=== PATIENT | male | born 1965 | race Caucasian/White ===

== ENCOUNTER 2018-07-02 09:31 | Inpatient (IN) | payer MEDICAID ==
[~2018-07-02] VITALS: Ht 157.5 cm; Wt 77.6 kg
[2018-07-02 09:37] VITALS: BP 198/109
--- NOTE | 2018-07-02 09:43 | NUR ---
PATIENT AMBULATED TO BED 11 AT THIS TIME.
--- NOTE | 2018-07-02 09:53 | NUR ---
C/O CP AND SOB X15 DAYS. PT REPORTS LT SIDED CP, NON-RADIATING, PRESSURE PAIN AT 6/10. PT O2 SAT 98% RA, BREATH SOUNDS CLEAR AND EQUAL BILAT, BREATHING UNLABORED. PT HYPERTENSIVE AT 182/100, SINUS TACH W/O ECTOPIES AT 121. PT SKIN IS WARM/DRY. PT ALERT AND ANSWERING QUESTIONS APPROPRIATELY. BED IN LOW POSITION. PT PLACED ON DINING CAR SERVER AND IN GOWN.
--- NOTE | 2018-07-02 09:56 | NUR ---
DR. JORGENSEN AT BEDSIDE EVALUATING PATIENT.
[2018-07-02] MEDS ORDERED: ASPIRIN 325 MG TAB PO ONE (10:00)
[2018-07-02] MEDS ORDERED: NACL 0.9% 1,000 ML IV ONE (10:00)
[2018-07-02] MEDS ORDERED: LORazepam 2 MG/ML VIAL IVP ONE (10:00)
--- NOTE | 2018-07-02 10:01 | NUR ---
URINE COLLECTED AND SENT TO LAB
--- NOTE | 2018-07-02 10:05 | NUR ---
IV STARTED, 20 G R FOREARM AND LABS COLLECTED AT BEDSIDE. PT TOLERATED PROCEDURE WELL.
--- NOTE | 2018-07-02 10:14 | NUR ---
XRAY AT BEDSIDE
[2018-07-02 10:16] LABS: BASOPHILS % (AUTO) 0.3 % (0.0-2.0); EOSINOPHILS # (AUTO) 0.1 K/uL (0-0.4); EOSINOPHILS % (AUTO) 0.5 % (0.0-4.0); HEMATOCRIT 44.5 % (36-52); HEMOGLOBIN 15.6 g/dL (12.0-18.0); LYMPHOCYTES # (AUTO) 2.1 K/uL (2.0-11.5); LYMPHOCYTES % (AUTO) 19.2 % (20.5-51.1); MEAN CORPUSCULAR HEMOGLOBIN 31 pg (27-31); MEAN CORPUSCULAR HGB CONC 35 g/dL (33-37); MEAN CORPUSCULAR VOLUME 87.9 fL (80-94); MONOCYTES # (AUTO) 0.4 K/uL (0.8-1.0); MONOCYTES % (AUTO) 4.1 % (1.7-9.3); NEUTROPHILS # (AUTO) 8.3 K/uL (1.8-7.7); NEUTROPHILS % (AUTO) 75.9 % (42.2-75.2); PLATELET COUNT (AUTO) 372 K/uL (140-450); RED BLOOD CELL COUNT(AUTO) 5.06 MIL/uL (4.20-6.10); RED CELL DISTRIBUTION WIDTH 12.8 % (11.6-13.7); WHITE BLOOD COUNT (AUTO) 10.9 K/uL (4.8-10.8)
[2018-07-02 10:50] LABS: BARBITURATE, URINE NEGATIVE ng/ml (NEG <=200); BENZODIAZEPINE, URINE NEGATIVE ng/mL (NEG <=200); CANNABINOID, URINE NEGATIVE ng/mL (NEG <=50); COCAINE, URINE NEGATIVE ng/mL (NEG <=300); OPIATE, URINE NEGATIVE ng/mL (NEG <=2000); PHENCYCLIDINE SCREEN,URINE NEGATIVE ng/mL (NEG <=25)
[2018-07-02 11:01] LABS: ALBUMIN 3.4 g/dL (3.4-5.0); ASPARTATE AMINOTRANSFERASE 17 U/L (15-37); CARBON DIOXIDE 24.1 mmol/L (21-32); CREATININE 1.1 mg/dL (0.7-1.3); GFR ARICAN-AMERICAN 91 mL/min (>90); GLUCOSE 344 mg/dL (74-106); LIPASE 191 U/L (73-393); UREA NITROGEN, BLOOD 24 mg/dL (7-18)
[2018-07-02 11:51] LABS: ANION GAP 14.9 (8-16); CHLORIDE 100 mmol/L (98-107); SODIUM SERUM 135 mmol/L (136-145)
[2018-07-02 12:12] LABS: CREATINE KINASE MB 1.9 ng/mL (0-3.6)
[2018-07-02] MEDS ORDERED: MORPHINE SULFATE 2 MG/ML SYR IVP PRN (12:15)
[2018-07-02] MEDS ORDERED: DOCUSATE SODIUM 100 MG GELCAP PO PRN (12:15)
[2018-07-02] MEDS ORDERED: ACETAMINOPHEN 325 MG TAB PO PRN (12:15)
[2018-07-02] MEDS ORDERED: HYDROcodone/APAP 5/325 MG 1 TAB TAB PO PRN (12:15)
[2018-07-02] MEDS ORDERED: ONDANSETRON 4 MG/2 ML VIAL IM/IVP PRN (12:15)
[2018-07-02 12:45] LABS: PROTHROMBIN TIME 9.3 secs (10.8-13.4)
--- NOTE | 2018-07-02 12:45 | NUR ---
Patient will be admitted to care of DR. MCCOY. Admited to TELEMETRY. Will go to room 106. Belongings list completed. Report to ANNAMARIE COLLAZO.
--- NOTE | 2018-07-02 12:45 | NUR ---
RECEIVED BEDSIDE REPORT FROM ER NURSE. PATIENT IS AWAKE, ALERT AND ORIENTEDX4. HEBREW SPEAKER. SKIN IS INTACT. TELE MONITOR IN PLACE IV ON R FA 22G SL. CLEAN, DRY AND INTACT. MRSA SWAB DONE. PATIENT IS AMBULATORY. CONTINENT. ALL ADMISSION QUESTIONS ANSWERED. PATIENT ABLE TO MAKE NEEDS KNOWN. BED IN LOW POSITION. CALL LIGHT WITHIN REACH. WILL CONTINUE TO MONITOR THE PATIENT
[2018-07-02 12:53] LABS: CHOL/HDL RATIO 5.3 (1-4.5); PHOSPHORUS 2.6 mg/dL (2.5-4.9); THYROID STIMULATING HORMONE 1.18 uIU/mL (0.34-3.74)
[2018-07-02] MEDS ORDERED: NITROGLYCERIN 0.4 MG TAB SL ONE (12:55)
[2018-07-02 13:00] VITALS: BP 149/89
[2018-07-02 13:05] LABS: MAGNESIUM 2.2 mg/dL (1.8-2.4)
[2018-07-02] MEDS ORDERED: NITROGLYCERIN 0.4 MG TAB SL PRN (13:35)
[2018-07-02] MEDS: NACL 0.9% 1,000 ML IV SCH (13:35)
--- NOTE | 2018-07-02 13:41 | NUR ---
ADMINISTERED IVF NS AT 100. PATIENT TOLERATING WELL. IV SITE IS CLEAN, DRY AND INTACT. FAMILY AT BEDSIDE. WILL CONTINUE TO MONITOR THE PATIENT
--- NOTE | 2018-07-02 14:35 | NUR ---
PATIENT SITTING IN BED. NO SIGNS OF DISTRESS. FAMILY AT BEDSIDE. WILL CONTINUE TO MONITOR THE PATIENT
[2018-07-02 16:00] VITALS: BP 135/86
--- NOTE | 2018-07-02 16:54 | NUR ---
PATIENT AMBULATING TO THE RESTROOM. GAIT IS STEADY. WILL CONTINUE TO MONITOR. COMPUTER DESIGNER WITH THE PATIENT
--- NOTE | 2018-07-02 17:28 | NUR ---
PATIENT SITTING IN BED. NO REQUESTS AT THIS TIME. WILL CONTINUE TO MONITOR THE PATIENT
--- NOTE | 2018-07-02 19:05 | NUR ---
GAVE BEDSIDE REPORT TO SAIL REPAIR PERSON NURSE. PATIENT ENDORSED IN STABLE CONDITION
--- NOTE | 2018-07-02 19:10 | NUR ---
RECEIVED PT ON BED, AAOX4, MALAWIAN SPEAKING, VITAL SIGNS TAKEN, BP SLIGHTLY ELEVATED, SR ON TELE, ASYMPTOMATIC, DENIES ANY PAIN, NO SOB NOTED, WILL GIVE DUE BP MEDICATION, IVF INFUSING WELL, PLAN OF CARE DISCUSS, SAFETY MEASURES IN PLACE, CALL LIGHT WITHIN REACH.
[2018-07-02 20:00] VITALS: BP 156/96
[2018-07-02] MEDS: METOPROLOL 25 MG TAB PO SCH (20:51)
--- NOTE | 2018-07-02 21:00 | NUR ---
DUE MEDS ADMINISTERED WITH EDUCATION PROVIDED, ALL NEEDS ATTENDED.
--- NOTE | 2018-07-02 23:30 | NUR ---
PT AMBULATED TO BR WITH STEADY GAIT, OBTAINED URINE SAMPLE AND SENT TO LAB, VITAL SIGNS STABLE, DENIES ANY PAIN, NO SOB NOTED, IVF INFUSING WELL, CONTINUE TO MONITOR CLOSELY.
[2018-07-02 23:49] LABS: APPEARANCE,URINE CLEAR (CLEAR); BILIRUBIN,URINE NEGATIVE (NEGATIVE); BLOOD, URINE 1+ (NEGATIVE); COLOR,URINE YELLOW (YELLOW); LEUKOCYTE ESTERASE ,URINE 1+ (NEGATIVE); NITRITE, URINE NEGATIVE (NEGATIVE); UGLUCOSE 3+ (NEGATIVE)
[2018-07-03] VITALS: BP 150/96
[2018-07-03 00:03] LABS: WBC,URINE 20-60 /HPF (0-5)
[2018-07-03] MEDS: NACL 0.9% 1,000 ML IV SCH ×3 (02:16→12:23)
--- NOTE | 2018-07-03 03:50 | NUR ---
PT SLEEPING, EASILY AROUSABLE, VITAL SIGNS TAKEN, BP SLIGHTLY ELEVATED, ASYMPTOMATIC, DENIES ANY PAIN, NO SOB NOTED, IVF INFUSING WELL, MONITORED CLOSELY.
[2018-07-03 04:00] VITALS: BP 151/88
--- NOTE | 2018-07-03 06:00 | NUR ---
PT AWAKE, NO SIGNS OF DISTRESS, DENIES ANY PAIN, IVF INFUSING WELL, MONITORED CLOSELY.
--- NOTE | 2018-07-03 07:10 | NUR ---
PT AWAKE SITTING ON BED, NO DISTRESS NOTED, BEDSIDE REPORT GIVEN TO ZAY CHAKRABORTY FOR CONTINUITY OF CARE.
--- NOTE | 2018-07-03 07:11 | NUR ---
RECEIVED BED SIDE REPORT FROM SURVEY TECHNOLOGIST RN. PT IN STABLE CONDITION, FILIPINO SPEAKING ONLY, ON RA IN NO RESPIRATORY DISTRESS, A/O X4, ON TELE MONITOR, SKIN INTACT, IV R FOREARM 20G RUNNING NS 100CC/HR, FLUSHES WELL, AMBULATORY, EDUCATED PT ON THE BENEFITS OF AMBULATING, PT STATED HE WILL TODAY. PT COMPLAINS OF NO CURRENT CP, WILL CONTINUE TO MONITOR
[2018-07-03] MEDS ORDERED: DEXTROSE 50% 50 ML SYR IVP PRN (07:25)
--- NOTE | 2018-07-03 07:45 | NUR ---
CHECKED SUGAR, 233, WILL GIVE INSULIN 4 UNITS
[2018-07-03 07:48] LABS: BASOPHILS % (AUTO) 0.3 % (0.0-2.0); EOSINOPHILS % (AUTO) 0.5 % (0.0-4.0); HEMATOCRIT 39.9 % (36-52); HEMOGLOBIN 13.9 g/dL (12.0-18.0); LYMPHOCYTES # (AUTO) 2.2 K/uL (2.0-11.5); LYMPHOCYTES % (AUTO) 29.4 % (20.5-51.1); MEAN CORPUSCULAR HEMOGLOBIN 31 pg (27-31); MEAN CORPUSCULAR HGB CONC 35 g/dL (33-37); MEAN CORPUSCULAR VOLUME 88.4 fL (80-94); MONOCYTES # (AUTO) 0.4 K/uL (0.8-1.0); MONOCYTES % (AUTO) 5.8 % (1.7-9.3); NEUTROPHILS # (AUTO) 4.7 K/uL (1.8-7.7); PLATELET COUNT (AUTO) 350 K/uL (140-450); RED BLOOD CELL COUNT(AUTO) 4.51 MIL/uL (4.20-6.10); RED CELL DISTRIBUTION WIDTH 12.5 % (11.6-13.7); WHITE BLOOD COUNT (AUTO) 7.4 K/uL (4.8-10.8)
[2018-07-03 08:00] VITALS: BP 174/100
[2018-07-03] MEDS: BLOOD GLUCOSE MONITORING 1 DEV DEV FS SCH ×4 (08:00→21:21)
[2018-07-03] MEDS: INSULIN LISPRO SLIDING SCALE 100 UNITS/ML VIAL SUBQ PRN ×3 (08:00→21:19)
[2018-07-03] MEDS: ASPIRIN 81 MG TAB.CHEW PO SCH (08:02)
[2018-07-03] MEDS: ATORVASTATIN 20 MG TAB PO SCH (08:02)
[2018-07-03] MEDS: METOPROLOL 25 MG TAB PO SCH (08:02)
[2018-07-03] MEDS: LISINOPRIL 10 MG TAB PO SCH (08:02)
[2018-07-03 08:03] LABS: ANION GAP 11.8 (8-16); CARBON DIOXIDE 24.5 mmol/L (21-32); CREATININE 0.9 mg/dL (0.7-1.3); POTASSIUM 4.3 mmol/L (3.5-5.1)
[2018-07-03 08:20] LABS: CHOL/HDL RATIO 5.7 (1-4.5); MAGNESIUM 1.9 mg/dL (1.8-2.4); PHOSPHORUS 2.2 mg/dL (2.5-4.9)
--- NOTE | 2018-07-03 08:41 | NUR ---
PATIENT HAS BEEN SCREENED AND CATEGORIZED MODERATE NUTRITION RISK. PATIENT WILL BE SEEN WITHIN 3-5 DAYS OF ADMISSION. 07/05/18BA[address]
[2018-07-03] MEDS ORDERED: metFORMIN 500 MG TAB PO SCH (09:15)
[2018-07-03 09:53] LABS: T4 (THYROXINE) 6.7 ug/dL (4.5-12.0)
[2018-07-03 12:00] VITALS: BP 155/93
--- NOTE | 2018-07-03 12:11 | NUR ---
PT STATED HE FELT PRESSURE LIKE CHEST PAIN NON RADIATING 07/24, GAVE NITRO 1X, WILL CONTINUE TO MONITOR Addendum: 07/03/18 at 1249 by Radha Carballo RN PT SHOWS NO S/S OF DISTRESS. SKIN COLOR PINK AND DRY, NOT DIAPHORETIC, ABLE TO TALK, A/OX4
--- NOTE | 2018-07-03 12:20 | NUR ---
PT STATED HIS PRESSURE LIKE CHEST PAIN WENT AWAY, SAYS IT MIGHT BE RELATED TO THE ANXIETY HE IS HAVING. ASKED IF HIS IMMEDIATE FAMILY HAS CARDIAC PROBLEMS, PT STATES NO ONLY SIBLINGS HAVE DM. TRIED TO CALL DR TO UPDATE HIM ON PT'S CONDITION. NO ANSWER
--- NOTE | 2018-07-03 12:25 | NUR ---
PT EATING LUNCH IN CHAIR, NO COMPLAINT OF CHEST PAIN, WILL CONTINUE TO MONITOR
--- NOTE | 2018-07-03 13:55 | NUR ---
CALLED ABOUT PT FEELING ANXIETY, ORDERED ATIVAN 1 TAB
[2018-07-03] MEDS ORDERED: LORazepam 1 MG TAB PO SCH (14:00)
--- NOTE | 2018-07-03 14:05 | NUR ---
GAVE PT ATIVAN PO PER MD ORDER, WILL CONTINUE TO MONITOR
--- NOTE | 2018-07-03 14:55 | NUR ---
ECHO BEING DONE ON PT BEDSIDE, PT TOLERATING PROCEDURE WELL, WILL CONTINUE TO MONITOR
[2018-07-03 16:00] VITALS: BP 148/93
[2018-07-03] MEDS: SODIUM PHOS / POTASSIUM PHOS 1 PKT PDR PO SCH (16:00)
[2018-07-03] MEDS ORDERED: METOPROLOL SUCCINATE 50 MG TABER PO SCH (16:00)
[2018-07-03] MEDS ORDERED: LACTOBACILLUS RHAMNOSUS GG 1 EACH CAP PO SCH (16:00)
--- NOTE | 2018-07-03 19:20 | NUR ---
GAVE BED SIDE REPORT TO DRY KILN LOADER RN, PT IN STABLE CONDITION
--- NOTE | 2018-07-03 19:21 | NUR ---
RECEIVED REPORT FROM DAY SHIFT NURSE. AAOX4. NO C/O PAIN OR SOB. ON ROOM AIR. SKIN INTACT. IV TO RIGHT FA #20G, NS AT 100 ML/HR, INFUSING WELL. DISCUSSED PLAN OF CARE, PT VERBALIZED UNDERSTANDING. SAFETY PRECAUTION IN PLACE, CALL LIGHT WITHIN REACH.
[2018-07-03 20:00] VITALS: BP 128/82
--- NOTE | 2018-07-03 21:20 | NUR ---
PT'S BLOOD SUGAR 277. 6 UNITS OF HUMALOG SUBQ GIVEN. PT TOLERATED WELL.
[2018-07-04] VITALS: BP 133/82
--- NOTE | 2018-07-04 | NUR ---
V/S CHECKED, WNL. ALL NEEDS ATTENDED AT THIS TIME. CALL LIGHT WITHIN REACH.
--- NOTE | 2018-07-04 02:35 | NUR ---
PT SLEEPING BUT WAKES EASILY. NO S/S OF PAIN OR RESP DISTRESS. IVF INFUSING WELL.
[2018-07-04 04:00] VITALS: BP 131/85
[2018-07-04] MEDS: NACL 0.9% 1,000 ML IV SCH (04:22)
--- NOTE | 2018-07-04 04:45 | NUR ---
PT SLEEPING. RESP EVEN AND UNLABORED. NO S/S OF PAIN OR DISCOMFORT.
[2018-07-04] MEDS: INSULIN LISPRO SLIDING SCALE 100 UNITS/ML VIAL SUBQ PRN ×2 (05:56→11:47)
[2018-07-04] MEDS: BLOOD GLUCOSE MONITORING 1 DEV DEV FS SCH ×2 (05:57→11:47)
--- NOTE | 2018-07-04 06:00 | NUR ---
BLOOD SUGAR 234. 4 UNITS OF HUMALOG GIVEN SUBQ. PT TOLERATED WELL.
[2018-07-04] MEDS: SODIUM PHOS / POTASSIUM PHOS 1 PKT PDR PO SCH ×2 (06:34→11:46)
--- NOTE | 2018-07-04 07:20 | NUR ---
ENDORSED PT TO DAY SHIFT NURSE. PT IN STABLE CONDITION.
--- NOTE | 2018-07-04 07:21 | NUR ---
RECEIVED BED SIDE REPORT FROM CHILD LIFE SPECIALIST RN. PT RESTING COMFORTABLY IN BED IN NO DISTRESS, WILL CONTINUE TO MONITOR
[2018-07-04] MEDS: ASPIRIN 81 MG TAB.CHEW PO SCH (07:56)
[2018-07-04] MEDS: ATORVASTATIN 20 MG TAB PO SCH (07:57)
[2018-07-04] MEDS: LISINOPRIL 10 MG TAB PO SCH (07:57)
[2018-07-04 08:00] VITALS: BP 155/90
[2018-07-04] MEDS ORDERED: metFORMIN 500 MG TAB PO SCH (08:00)
[2018-07-04 08:13] LABS: BASOPHILS % (AUTO) 0.2 % (0.0-2.0); EOSINOPHILS # (AUTO) 0.1 K/uL (0-0.4); EOSINOPHILS % (AUTO) 0.9 % (0.0-4.0); HEMATOCRIT 37.3 % (36-52); HEMOGLOBIN 13.3 g/dL (12.0-18.0); LYMPHOCYTES # (AUTO) 2.4 K/uL (2.0-11.5); LYMPHOCYTES % (AUTO) 31.3 % (20.5-51.1); MEAN CORPUSCULAR HEMOGLOBIN 32 pg (27-31); MEAN CORPUSCULAR HGB CONC 36 g/dL (33-37); MEAN CORPUSCULAR VOLUME 88.2 fL (80-94); MONOCYTES # (AUTO) 0.4 K/uL (0.8-1.0); NEUTROPHILS # (AUTO) 4.8 K/uL (1.8-7.7); NEUTROPHILS % (AUTO) 62.6 % (42.2-75.2); PLATELET COUNT (AUTO) 343 K/uL (140-450); RED BLOOD CELL COUNT(AUTO) 4.23 MIL/uL (4.20-6.10); RED CELL DISTRIBUTION WIDTH 12.6 % (11.6-13.7); WHITE BLOOD COUNT (AUTO) 7.7 K/uL (4.8-10.8)
[2018-07-04 08:17] LABS: ANION GAP 10.5 (8-16); CREATININE 0.8 mg/dL (0.7-1.3); POTASSIUM 4.5 mmol/L (3.5-5.1)
[2018-07-04 08:25] LABS: MAGNESIUM 1.7 mg/dL (1.8-2.4)
[2018-07-04 08:45] LABS: PHOSPHORUS 2.9 mg/dL (2.5-4.9)
[2018-07-04] MEDS ORDERED: ATORVASTATIN 20 MG TAB PO SCH (09:00)
[2018-07-04] MEDS ORDERED: METOPROLOL SUCCINATE 50 MG TABER PO SCH (09:00)
[2018-07-04] MEDS ORDERED: LACTOBACILLUS RHAMNOSUS GG 1 EACH CAP PO SCH (09:00)
[2018-07-04] MEDS ORDERED: ASPI81CT95 PO (10:38)
[2018-07-04] MEDS ORDERED: LEVO750T2 PO (10:38)
[2018-07-04] MEDS ORDERED: LISI10TA11 PO (10:38)
[2018-07-04] MEDS ORDERED: ATOR20TA40 PO (10:38)
[2018-07-04] MEDS ORDERED: METO50TE2 PO (10:38)
[2018-07-04] MEDS ORDERED: GLIP10TA12 PO (10:38)
[2018-07-04] MEDS ORDERED: METF850T PO (10:38)
--- NOTE | 2018-07-04 11:03 | NUR ---
PT AMBULATED TO RESTROOM IN NO DISTRESS, PT HAS A STEADY GAIT, PT MADE AWARE ABOUT DC ORDER AND INSTRUCTIONS. ASKED PT ABOUT PNEUMONIA VACCINE AND PT AGREED FOR IT TO BE GIVEN AT DC. WILL WAIT FOR FURTHER DC INSTRUCTIONS FROM .
[2018-07-04] MEDS ORDERED: PNEUMOCOCCAL VACCINE 23 MCG/0.5 ML VIAL IMVAC SCH (11:05)
[2018-07-04] MEDS ORDERED: MAGNESIUM OXIDE 400 MG TAB PO SCH (11:22)
[2018-07-04 12:00] VITALS: BP 151/90
--- NOTE | 2018-07-04 12:27 | NUR ---
TRIED CALLING SHEILA, PT'S NEPHEW BUT NO ANSWER, COULD NOT LEAVE VOICEMAIL BECAUSE INBOX FULL. CALLED ABRAHANSHOAIB GEORGE, SHE DID NOT ANSWER BUT LEFT A VOICEMAIL TO CONFIRM IF SHE COULD FIRE APPARATUS ENGINEER PT TODAY.
--- NOTE | 2018-07-04 15:10 | NUR ---
WINSTON, CALLED BACK AND SAID SHE WILL PICK PT UP BETWEEN [phone] TODAY
[2018-07-04] MEDS ORDERED: glipiZIDE 10 MG TAB PO SCH (16:30)
--- NOTE | 2018-07-04 16:49 | NUR ---
ARIEL-ABRAHANECE CAME TO WEB SITE PROJECT MANAGER PT. EDUCATED PT ON MEDS TO START AND CONTINUE TO TAKE AND EDUCATED ON THE IMPORTANCE OF GOING TO APPOINTMENT THIS TUESDAY. PT LEFT WALKING IN NO DISTRESS, WRISTBAND NAME CUT OFF, IV TAKEN OFF, NO BLEEDING NOTED
[2018-07-04] MEDS ORDERED: metFORMIN 850 MG TAB PO SCH (17:00)
== END 2018-07-04 16:00 | disposition home or self-care (01) | DRG 199 ==
LOC: MED 09:31 → MTU 12:11
PROVIDERS: ADMIT General Practice; ATTEND General Practice
PROC: 3E0234Z Introduction of Serum, Toxoid and Vaccine into Muscle, Percutaneous Approach (ICD-10-PCS; principal; 2018-07-04)
DX: I16.0 Hypertensive urgency (principal); R65.10 Systemic inflammatory response syndrome (SIRS) of non-infectious origin without acute organ dysfunction; E11.65 Type 2 diabetes mellitus with hyperglycemia; E44.1 Mild protein-calorie malnutrition; E83.39 Other disorders of phosphorus metabolism; N39.0 Urinary tract infection, site not specified; M94.0 Chondrocostal junction syndrome [Tietze]; Z68.31 Body mass index [BMI] 31.0-31.9, adult; K21.9 Gastro-esophageal reflux disease without esophagitis; E78.5 Hyperlipidemia, unspecified; F41.9 Anxiety disorder, unspecified; Z23 Encounter for immunization; Z83.3 Family history of diabetes mellitus; Z82.3 Family history of stroke
CPT/HCPCS: 36415; 71045; 80048; 80053; 80305; 81001; 82150; 82550; 82553; 82948; 83036; 83605; 83690; 83735; 83880; 84100; 84436; 84443; 84484; 85025; 85379; 85610; 85730; 87040; 87081; 87086; 90732; 93005; 96361; 96374; 99285; G0482; J0696; J1644; J1815; J2060; J7030; J7060

== ENCOUNTER 2018-07-18 07:58 | Emergency (ER) | payer MEDICAID ==
[~2018-07-18] VITALS: Ht 161.3 cm; Wt 78.1 kg
[~2018-07-18 07:58] MED LIST: ASPI81CT95 PO; ATOR20TA40 PO; GLIP10TA12 PO; LEVO750T2 PO; LISI10TA11 PO; METF850T PO; METO50TE2 PO
[2018-07-18 08:04] VITALS: BP 145/107
--- NOTE | 2018-07-18 08:13 | NUR ---
pt ambulated to er bed 09
--- NOTE | 2018-07-18 08:13 | NUR ---
Aayush tadeo in [facility] - 07/18/18 at 0842 by MED1 PATIENT AMBULATED TO BED 9
[2018-07-18] MEDS ORDERED: ASPIRIN 81 MG TAB.CHEW PO ONE (08:20)
[2018-07-18] MEDS ORDERED: LORazepam 2 MG/ML VIAL IVP ONE (08:20)
--- NOTE | 2018-07-18 08:43 | NUR ---
PCXR AT BEDSIDE
[2018-07-18 08:44] LABS: BASOPHILS % (AUTO) 0.3 % (0.0-2.0); EOSINOPHILS # (AUTO) 0.1 K/uL (0-0.4); EOSINOPHILS % (AUTO) 0.7 % (0.0-4.0); HEMATOCRIT 37.2 % (36-52); LYMPHOCYTES # (AUTO) 1.6 K/uL (2.0-11.5); LYMPHOCYTES % (AUTO) 19.9 % (20.5-51.1); MEAN CORPUSCULAR HEMOGLOBIN 31 pg (27-31); MEAN CORPUSCULAR HGB CONC 35 g/dL (33-37); MEAN CORPUSCULAR VOLUME 88.5 fL (80-94); MONOCYTES # (AUTO) 0.4 K/uL (0.8-1.0); MONOCYTES % (AUTO) 4.9 % (1.7-9.3); NEUTROPHILS # (AUTO) 5.8 K/uL (1.8-7.7); NEUTROPHILS % (AUTO) 74.2 % (42.2-75.2); PLATELET COUNT (AUTO) 411 K/uL (140-450); RED CELL DISTRIBUTION WIDTH 12.5 % (11.6-13.7); WHITE BLOOD COUNT (AUTO) 7.8 K/uL (4.8-10.8)
--- NOTE | 2018-07-18 08:45 | NUR ---
EKG DONE IN THE PATIENT.
[2018-07-18 08:50] LABS: ANION GAP 13.3 (8-16); CARBON DIOXIDE 23.9 mmol/L (21-32); CREATININE 0.9 mg/dL (0.7-1.3); POTASSIUM 4.2 mmol/L (3.5-5.1)
[2018-07-18 08:56] LABS: ALBUMIN 3.4 g/dL (3.4-5.0); TOTAL BILIRUBIN 0.6 mg/dL (0.0-1.0)
--- NOTE | 2018-07-18 09:56 | NUR ---
PT'S SISTER CALLED FOR RIDE HOME PER PT'S REQUEST. TYE [phone]. PT TO BE DISCHARGED HOME. PT DENIES CP. NO SOB, OR DIZZINESS. PT RELAXED. NSR ON MONITOR. BREATHING EVEN AND UNLABORED.
[2018-07-18 10:18] VITALS: BP 139/87
== END 2018-07-18 10:19 | disposition home or self-care (01) ==
LOC: MED 07:58
DX: F41.9 Anxiety disorder, unspecified (principal); G47.00 Insomnia, unspecified; I10 Essential (primary) hypertension; E11.9 Type 2 diabetes mellitus without complications; Z79.84 Long term (current) use of oral hypoglycemic drugs; Z79.82 Long term (current) use of aspirin; Z79.899 Other long term (current) drug therapy
CPT/HCPCS: 36415; 71045; 80053; 81002; 82948; 83880; 84484; 85025; 93005; 96374; 99284; J2060; Q0092

== ENCOUNTER 2018-08-20 11:20 | Inpatient (IN) | payer SELFPAY ==
[~2018-08-20] VITALS: Ht 160 cm; Wt 74.8 kg
[2018-08-20 11:24] VITALS: BP 126/67
--- NOTE | 2018-08-20 11:24 | NUR ---
PT AMBULATED TO ER BED 11
--- NOTE | 2018-08-20 11:27 | NUR ---
DR. HERR BEDSIDE EVALUATING PT
--- NOTE | 2018-08-20 11:30 | NUR ---
PT BROUGHT IN BY FAMILY WITH C/O WEAKNESS, CONFUSION, LETHARGY AND REPORT OF FAINTING 2 TIMES YESTERDAY. PT SKIN IS COOL, CLAMMY & PALE. PT VERY SLOW TO RESPOND BUT RESPONDS WITH CORRECT INFORMATION DESPITE MUMBLING. PT IS UNABLE TO BEAR WEIGHT ON HIS OWN, HE WAS WALKED INTO THE ER WHILE FAMILY HELD HIM UPRIGHT AND ASSISTED HIM. FAMILY REPORTS THAT HE HAS NOT BEEN EATING MUCH LATELY AND HE IS AFRAID OF CONSUMING TOO MUCH SUGAR. FSBS 15, ERMD NOTIFIED AND VERBAL ORDER OF IVP D50 GIVEN. 18G IV PLACED IN L AC. PT PLACED IN BED 11 AND TRIAGED AT BEDSIDE, ASSISTED IN DRESSING INTO A GOWN AND ON BEDSIDE MEDICAL DEVICE AT THIS TIME. BED IN LOW POSITION, SIDE RAIL UP X2 PER PT REQUEST. ERMD EVALUATING PT AT BEDSIDE.
[2018-08-20] MEDS ORDERED: DEXTROSE 50% 50 ML SYR IVP ONE ×4 (11:35→13:05)
--- NOTE | 2018-08-20 11:40 | NUR ---
DR. HERR RE-EVALUATING PT AT BEDSIDE
--- NOTE | 2018-08-20 11:40 | NUR ---
FSBS RE-EVALUATED AT 166. PT IS ALERT AND SPEAKING CLEARLY. PT REPORTS FEELING BETTER. PT WAS GIVEN 2 APPLE JUICE BOXES TO CONSUME. INFORMED PT TO ASK FOR ASSISTANCE IF HE NEEDS TO GET UP.
--- NOTE | 2018-08-20 12:23 | NUR ---
GAVE PT A REG DIET TRAY
[2018-08-20 12:42] LABS: BASOPHILS % (AUTO) 0.1 % (0.0-2.0); EOSINOPHILS % (AUTO) 0.4 % (0.0-4.0); HEMATOCRIT 31.5 % (36-52); HEMOGLOBIN 10.9 g/dL (12.0-18.0); LYMPHOCYTES # (AUTO) 1.4 K/uL (2.0-11.5); MEAN CORPUSCULAR HEMOGLOBIN 32 pg (27-31); MEAN CORPUSCULAR HGB CONC 35 g/dL (33-37); MEAN CORPUSCULAR VOLUME 91.1 fL (80-94); MONOCYTES # (AUTO) 0.6 K/uL (0.8-1.0); MONOCYTES % (AUTO) 7.2 % (1.7-9.3); NEUTROPHILS # (AUTO) 6.9 K/uL (1.8-7.7); NEUTROPHILS % (AUTO) 76.3 % (42.2-75.2); PLATELET COUNT (AUTO) 321 K/uL (140-450); RED BLOOD CELL COUNT(AUTO) 3.46 MIL/uL (4.20-6.10); RED CELL DISTRIBUTION WIDTH 13.1 % (11.6-13.7)
[2018-08-20 12:49] LABS: ANION GAP 14.2 (8-16); CARBON DIOXIDE 23.3 mmol/L (21-32); CHLORIDE 102 mmol/L (98-107); CREATININE 1.2 mg/dL (0.7-1.3); GFR ARICAN-AMERICAN 82 mL/min (>90); GLUCOSE 58 mg/dL (74-106); POTASSIUM 4.5 mmol/L (3.5-5.1); SODIUM SERUM 135 mmol/L (136-145); UREA NITROGEN, BLOOD 30 mg/dL (7-18)
--- NOTE | 2018-08-20 13:00 | NUR ---
PT UNABLE TO URINATE AT THIS TIME, ERMD AWARE
[2018-08-20 13:03] LABS: ALBUMIN 3.6 g/dL (3.4-5.0); ASPARTATE AMINOTRANSFERASE 33 U/L (15-37); THYROID STIMULATING HORMONE 1.13 uIU/mL (0.34-3.74); TOTAL BILIRUBIN 0.6 mg/dL (0.0-1.0)
[2018-08-20 13:04] LABS: ACETAMINOPHEN < 0.5 ug/ml (10-30); SALICYLATE < 2.8 mg/dL (2.8-20.0)
[2018-08-20] MEDS ORDERED: OCTREOTIDE ACETATE 100 MCG/ML VIAL SUBQ STA (13:05)
[2018-08-20] MEDS ORDERED: DEXT 5% / NACL 0.45% 1,000 ML IV ONE (13:05)
[2018-08-20] MEDS ORDERED: LORazepam 2 MG/ML VIAL IM/IVP PRN (13:10)
[2018-08-20] MEDS ORDERED: HYDROcodone/APAP 5/325 MG 1 TAB TAB PO PRN (13:10)
[2018-08-20] MEDS ORDERED: DOCUSATE SODIUM 100 MG GELCAP PO PRN (13:10)
[2018-08-20] MEDS ORDERED: NACL 0.9% 1,000 ML IV SCH (13:10)
[2018-08-20] MEDS ORDERED: MORPHINE SULFATE 2 MG/ML SYR IVP PRN (13:10)
[2018-08-20] MEDS ORDERED: ONDANSETRON 4 MG/2 ML VIAL IM/IVP PRN (13:10)
[2018-08-20] MEDS ORDERED: ACETAMINOPHEN 325 MG TAB PO PRN (13:10)
--- NOTE | 2018-08-20 13:30 | NUR ---
Patient will be admitted to care of DR. MCCOY. Admited to MED SURG. Will go to room 111A. Belongings list completed. Report to ZAY ALMANZA.
[2018-08-20 13:45] LABS: PROTHROMBIN TIME 9.6 secs (10.8-13.4)
[2018-08-20 13:47] VITALS: BP 135/82
--- NOTE | 2018-08-20 14:15 | NUR ---
RECEIVED REPORT FROM RADHA FREEMAN. Addendum: 08/20/18 at 1503 by Claudia Marsh Meng, RN PATIENT IN STABLE CONDITION. BS CHECKED AT 1343 WITH 152 MG/DL RESULT. DENIES DIAPHORESIS, LIGHTHEADEDNESS/DIZZINESS, FAINTNESS AT THIS TIME. AOX4.
--- NOTE | 2018-08-20 15:01 | NUR ---
OBTAINED ADMISSION ASSESSMENT WITH GALE CONTRERAS. OFFERED TUTORize MANAGER MARKET DEVELOPMENT SERVICES BUT PT PREFERS NEPHEW TO TRANSLATE.
--- NOTE | 2018-08-20 15:07 | NUR ---
DR. HERRING AT BEDSIDE TO EVAL PATIENT.
[2018-08-20] MEDS ORDERED: MECLIZINE 25 MG TAB PO PRN (15:45)
--- NOTE | 2018-08-20 15:54 | NUR ---
CURRICULUM SUPERVISOR HERE TO PARI MUTUEL CLERK PATIENT FOR CSPINE.
[2018-08-20 16:00] VITALS: BP 137/80
[2018-08-20 16:15] VITALS: BP 131/73
[2018-08-20 16:20] VITALS: BP 143/82
[2018-08-20] MEDS: DEXT 5% /NACL 0.9% 1,000 ML IV SCH (16:22)
[2018-08-20 16:25] VITALS: BP 129/81
[2018-08-20] MEDS ORDERED: DEXTROSE 50% 50 ML SYR IVP PRN (17:05)
--- NOTE | 2018-08-20 17:37 | NUR ---
ADMINISTERED 2 UNITS HUMALOG PER SLIDING SCALE. SLIDING SCALE NOT VERIFIED YET BY PHARMACY WHICH IS CLOSED. VERIFIED 2 UNITS HUMALOG WITH TOVA COLLAZO.
--- NOTE | 2018-08-20 18:54 | NUR ---
ASKED PATIENT TO PROVIDE URINE SAMPLE AND NOTIFY RN WHEN AVAILABLE.
--- NOTE | 2018-08-20 19:22 | NUR ---
RECEIVED BEDSIDE REPORT FROM DAY SHIFT RN. PT IS AAOX4. WALLISIAN SPEAKING ONLY. ON ROOM AIR RESPIRATIONS ARE EQUAL AND UNLABORED. C/C LOW BLOOD SUGAR. PATIENT ON FALL PROTOCOL. SIGH AT DOOR. IV ON LAC 18G INFUSING D5NS AT 80M/H. SKIN INTACT PATIENT IS AMBULATORY WITH ASSIST D/T C/C DIZZINESS. EDUCATED PATIENT ON NEED TO COLLECT UA VERBALIZED UNDERSTANDING SPECIMEN CUP AT BEDSIDE. PLAN OF CARE DISCUSSED WITH PT. CALL LIGHT IS WITHIN REACH. WILL CONTINUE TO MONITOR.
--- NOTE | 2018-08-20 19:27 | NUR ---
ENDORSED POC TO BREAD PAN GREASER RN. PT IN STABLE CONDITION.
[2018-08-20] MEDS: BLOOD GLUCOSE MONITORING 1 DEV DEV FS SCH (21:17)
[2018-08-20] MEDS: INSULIN LISPRO SLIDING SCALE 100 UNITS/ML VIAL SUBQ PRN (21:23)
--- NOTE | 2018-08-20 21:23 | NUR ---
BLOOD SUGAR WAS 256 ADMINISTERED 6U OF HUMALOG PER ORDERS. EDUCATED PATIENT ON S/S OF HYPOGLYCEMIA. SNACK AT BEDSIDE. CALL LIGHT IS WITHIN REACH. WILL CONTINUE TO MONITOR.
--- NOTE | 2018-08-20 22:30 | NUR ---
PATIENT IS SLEEPING COMFORTABLY IN BED. NO S/S OF DISTRESS. WILL CONTINUE TO MONITOR.
[2018-08-21] VITALS: BP 133/81
--- NOTE | 2018-08-21 | NUR ---
VITAL SIGNS ARE WITHIN NORMAL LIMITS AND DENIES PAIN. ALL NEEDS MET AT THIS TIME. CALL LIGHT IS WITHIN REACH
--- NOTE | 2018-08-21 01:51 | NUR ---
PATIENT IS SLEEPING COMFORTABLY IN BED NO S/S OF DISTRESS. SAFETY MEASURES ARE IN PLACE. CALL LIGHT IS WITHIN REACH.
--- NOTE | 2018-08-21 04:15 | NUR ---
UA COLLECTED AND SENT TO LAB. NEW BAG OF IVF NOW INFUSING. ALL NEEDS MET AT THIS TIME. WILL CONTINUE TO MONITOR.
[2018-08-21] MEDS: DEXT 5% /NACL 0.9% 1,000 ML IV SCH (04:20)
[2018-08-21 05:53] LABS: BILIRUBIN,URINE NEGATIVE (NEGATIVE); BLOOD, URINE 1+ (NEGATIVE); COLOR,URINE YELLOW (YELLOW); LEUKOCYTE ESTERASE ,URINE 1+ (NEGATIVE); NITRITE, URINE NEGATIVE (NEGATIVE); UGLUCOSE TRACE (NEGATIVE)
[2018-08-21] MEDS: BLOOD GLUCOSE MONITORING 1 DEV DEV FS SCH ×4 (05:56→21:10)
[2018-08-21 06:04] LABS: BARBITURATE, URINE NEG. ng/ml (NEG <=200); BENZODIAZEPINE, URINE NEG. ng/mL (NEG <=200); CANNABINOID, URINE NEG. ng/mL (NEG <=50); COCAINE, URINE NEG. ng/mL (NEG <=300); OPIATE, URINE NEG. ng/mL (NEG <=2000); PHENCYCLIDINE SCREEN,URINE NEG. ng/mL (NEG <=25)
[2018-08-21 06:10] LABS: APPEARANCE,URINE SLIGHTLY HAZY (CLEAR)
[2018-08-21 06:13] LABS: RBC,URINE 0-5 /HPF (0-5); WBC,URINE 0-5 /HPF (0-5)
[2018-08-21 06:35] LABS: BASOPHILS % (AUTO) 0.3 % (0.0-2.0); EOSINOPHILS # (AUTO) 0.1 K/uL (0-0.4); EOSINOPHILS % (AUTO) 1.1 % (0.0-4.0); HEMATOCRIT 31.9 % (36-52); HEMOGLOBIN 11.4 g/dL (12.0-18.0); LYMPHOCYTES # (AUTO) 2.5 K/uL (2.0-11.5); LYMPHOCYTES % (AUTO) 31.8 % (20.5-51.1); MEAN CORPUSCULAR HEMOGLOBIN 33 pg (27-31); MEAN CORPUSCULAR HGB CONC 36 g/dL (33-37); MEAN CORPUSCULAR VOLUME 90.6 fL (80-94); MONOCYTES # (AUTO) 0.7 K/uL (0.8-1.0); MONOCYTES % (AUTO) 9.3 % (1.7-9.3); NEUTROPHILS # (AUTO) 4.5 K/uL (1.8-7.7); NEUTROPHILS % (AUTO) 57.5 % (42.2-75.2); PLATELET COUNT (AUTO) 332 K/uL (140-450); RED BLOOD CELL COUNT(AUTO) 3.52 MIL/uL (4.20-6.10); RED CELL DISTRIBUTION WIDTH 13.5 % (11.6-13.7); WHITE BLOOD COUNT (AUTO) 7.7 K/uL (4.8-10.8)
[2018-08-21 06:55] LABS: ANION GAP 13.5 (8-16); CARBON DIOXIDE 24.3 mmol/L (21-32); POTASSIUM 4.8 mmol/L (3.5-5.1)
--- NOTE | 2018-08-21 07:20 | NUR ---
GAVE BEDSIDE REPORT TO DAY SHIFT RN. PT ENDORSED IN STABLE CONDITION.
--- NOTE | 2018-08-21 07:21 | NUR ---
RECEIVED BEDSIDE REPORT FROM HYDROELECTRIC OPERATOR NURSE. PATIENT IS AWAKE, ALERT AND ORIENTEDX4. NO SIGNS OF DISTRESS ON RA, SKIN IS INTACT. IV ON L AC 18G D5NS AT 80. CLEAN, DRY AND INTACT. FALL RISK PROTOCOL IN PLACE. PATIENT HAD A HX OF FALL. AMBULATORY. ABLE TO MAKE NEEDS KNOWN. BED IN LOW POSITION, CALL LIGHT WITHIN REACH. WILL CONTINUE TO MONITOR THE PATIENT
[2018-08-21 08:00] VITALS: BP 132/83
--- NOTE | 2018-08-21 08:37 | NUR ---
PATIENT HAS BEEN SCREENED AND CATEGORIZED HIGH NUTRITION RISK. PATIENT WILL BE SEEN WITHIN 1-2 DAYS OF ADMISSION. 08/21/18-08/22/[address]
[2018-08-21] MEDS: metFORMIN 850 MG TAB PO SCH ×2 (08:58→16:57)
[2018-08-21] MEDS: LISINOPRIL 10 MG TAB PO SCH (08:59)
[2018-08-21] MEDS: ATORVASTATIN 20 MG TAB PO SCH (08:59)
[2018-08-21] MEDS: METOPROLOL SUCCINATE 50 MG TABER PO SCH (08:59)
[2018-08-21] MEDS: ASPIRIN 81 MG TAB.CHEW PO SCH (08:59)
[2018-08-21] MEDS: NACL 0.9% 1,000 ML IV SCH (09:00)
[2018-08-21] MEDS ORDERED: ATORVASTATIN 20 MG TAB PO SCH (09:00)
--- NOTE | 2018-08-21 09:12 | NUR ---
ADMINISTERED MEDS. PATIENT TOLERATED WELL. EDUCATED ON SIDE EFFECTS. WILL CONTINUE TO MONITOR THE PATIENT.
--- NOTE | 2018-08-21 11:15 | NUR ---
PATIENT WATCHING TV, NO SIGNS OF DISTRESS. WILL CONTINUE TO MONITOR THE PATIENT.
[2018-08-21] MEDS: INSULIN LISPRO SLIDING SCALE 100 UNITS/ML VIAL SUBQ PRN ×2 (12:33→16:58)
--- NOTE | 2018-08-21 12:42 | NUR ---
ADMINISTERED MEDS. PATIENT TOLERATED WELL. EDUCATED ON SIDE EFFECTS. WILL CONTINUE TO MONITOR THE PATIENT
--- NOTE | 2018-08-21 13:34 | NUR ---
PATIENT IN BED. NO SIGNS OF DISTRESS. WILL CONTINUE TO MONITOR THE PATIENT
--- NOTE | 2018-08-21 14:44 | NUR ---
PATIENT SITTING IN BED READING PAPERWORK. NO SIGNS OF DISTRESS. WILL CONTINUE TO MONITOR THE PATIENT
--- NOTE | 2018-08-21 15:06 | NUR ---
08/21/18 RD INITIAL ASSESSMENT COMPLETED PLEASE REFER TO NUTRITION ASSESSMENT UNDER CARE ACTIVITY FOR ESTIMATED NUTRITIONAL NEEDS. 1. CONTINUE CCHO 60 GM DIET TOLERATED 2. ENCOURAGED PT TO NOT SKIP MEALS, INCORPORATE 2 SNACKS/DAY 3. CONTINUE INCLUDING VEGETABLES IN EVERY MEAL 4. ENCOURAGED PT TO MAINTAIN A LOG WITH BLOOD SUGAR LEVELS, PRE AND POST PRANDIAL. 3. RD TO FOLLOW-UP 5-7 DAYS, LOW RISK BAILEY RAMOS RD
[2018-08-21 16:00] VITALS: BP 124/78
--- NOTE | 2018-08-21 16:59 | NUR ---
ADMINISTERED MEDS. EDUCATED ON SIDE EFFECTS. PATIENT TOLERATED WELL. WILL CONTINUE TO MONITOR THE PATIENT.
--- NOTE | 2018-08-21 18:14 | NUR ---
PATIENT SITTING IN BED. NO SIGNS OF DISTRESS. WILL CONTINUE TO MONITOR THE PATIENT.
--- NOTE | 2018-08-21 19:05 | NUR ---
GAVE BEDSIDE REPORT TO ANESTHESIOLOGY TECH NURSE. PATIENT ENDORSED IN STABLE CONDITION
--- NOTE | 2018-08-21 19:05 | NUR ---
RECEIVED PT REPORT AT BEDSIDE. PT AWAKE, ALERT AND ORIENTED. NO S/S OF DISTRESS NOTED. PATIENT DENIES PAIN OR DISCOMFORT. BED LOWERED WITH CALL LIGHT WITHIN REACH. WILL CONTINUE TO MONITOR
[2018-08-21 20:00] VITALS: BP 118/72
[2018-08-22] VITALS: BP 110/69
--- NOTE | 2018-08-22 00:56 | NUR ---
PT ASLEEP IN BED. NO S/S OF DISTRESS NOTED
[2018-08-22] MEDS: BLOOD GLUCOSE MONITORING 1 DEV DEV FS SCH ×2 (07:30→11:52)
--- NOTE | 2018-08-22 07:33 | NUR ---
Report received from nurse Saavedra, Pt awake a/o able to communicate needs and appropriate. Pt denies pain or s/s of hyper/hypoglycemia. Call light and personal items within easy reach, no s/s of acute distress noted at this time, will continue to monitor.
--- NOTE | 2018-08-22 07:33 | NUR ---
PT REPORT GIVEN AT BEDSIDE. PATIENT ENDORSED IN STABLE CONDITION
[2018-08-22 08:00] VITALS: BP 124/89
[2018-08-22] MEDS ORDERED: ATOR20TA40 PO (08:15)
[2018-08-22 08:46] LABS: BASOPHILS % (AUTO) 0.3 % (0.0-2.0); EOSINOPHILS # (AUTO) 0.1 K/uL (0-0.4); HEMOGLOBIN 12.1 g/dL (12.0-18.0); LYMPHOCYTES # (AUTO) 2.3 K/uL (2.0-11.5); LYMPHOCYTES % (AUTO) 32.2 % (20.5-51.1); MEAN CORPUSCULAR HEMOGLOBIN 31 pg (27-31); MEAN CORPUSCULAR HGB CONC 35 g/dL (33-37); MEAN CORPUSCULAR VOLUME 90.8 fL (80-94); MONOCYTES # (AUTO) 0.5 K/uL (0.8-1.0); MONOCYTES % (AUTO) 6.5 % (1.7-9.3); NEUTROPHILS # (AUTO) 4.2 K/uL (1.8-7.7); PLATELET COUNT (AUTO) 365 K/uL (140-450); RED BLOOD CELL COUNT(AUTO) 3.85 MIL/uL (4.20-6.10); RED CELL DISTRIBUTION WIDTH 13.7 % (11.6-13.7); WHITE BLOOD COUNT (AUTO) 7.1 K/uL (4.8-10.8)
[2018-08-22] MEDS ORDERED: ATOR40TA PO (08:54)
[2018-08-22] MEDS: NACL 0.9% 1,000 ML IV SCH (08:55)
[2018-08-22] MEDS: metFORMIN 850 MG TAB PO SCH (08:55)
[2018-08-22] MEDS: LISINOPRIL 10 MG TAB PO SCH (08:56)
[2018-08-22] MEDS: ATORVASTATIN 20 MG TAB PO SCH (08:56)
[2018-08-22] MEDS: ASPIRIN 81 MG TAB.CHEW PO SCH (08:56)
[2018-08-22] MEDS: METOPROLOL SUCCINATE 50 MG TABER PO SCH (08:57)
[2018-08-22] MEDS ORDERED: NITR100C7 PO (09:10)
[2018-08-22 09:29] LABS: ANION GAP 16.4 (8-16); POTASSIUM 4.4 mmol/L (3.5-5.1)
--- NOTE | 2018-08-22 09:30 | NUR ---
Pt resting in bed, appears comfortable, no s/s of hyper/hypoglycemia. Call light and personal items within easy reach, no s/s of acute distress noted at this time, will continue to monitor.
--- NOTE | 2018-08-22 10:30 | NUR ---
Pt remains awake a/o able to communicate needs and appropriate. Pt denies pain or s/s of hyper/hypoglycemia. Call light and personal items within easy reach, no s/s of acute distress noted at this time, will continue to monitor. Addendum: 08/22/18 at 1554 by Carmen Mariscal RN Time 1100
--- NOTE | 2018-08-22 13:30 | NUR ---
Pt remains awake a/o able to communicate needs and appropriate. Ambulating in hallway no s/s of hyper/hypoglycemia. No s/s of acute distress noted at this time, will continue to monitor.
--- NOTE | 2018-08-22 14:00 | NUR ---
Spoke w Pt rita Comer, per Souleymane family unable to hop picker Pt for discharge until 4:30, Pt notified and is agreeable. No s/s of acute distress noted at this time, call light and personal items within easy reach, will continue to monitor.
[2018-08-22 14:40] VITALS: BP 124/89
--- NOTE | 2018-08-22 15:22 | NUR ---
Provided DC instruction via telephone translation parts sales representative Red #[phone], all questions answered, pt verbalized understanding. No s/s of acute distress noted at this time, will continue to monitor.
--- NOTE | 2018-08-22 16:15 | NUR ---
Pt Peripheral IV DC�d, tolerated well, cath intact, refused pneumonia vaccine states he thinks they are utd. Pt stable, no s/s of acute distress or s/s hyper/hypoglycemia noted. Pt discharged home w all belongings via personal transport accompanied by family
== END 2018-08-22 16:15 | disposition home or self-care (01) | DRG 74 ==
LOC: MED 11:20 → MTU 13:10
PROVIDERS: ADMIT General Practice; ATTEND General Practice
DX: G90.8 Other disorders of autonomic nervous system (principal); E87.1 Hypo-osmolality and hyponatremia; N39.0 Urinary tract infection, site not specified; E11.649 Type 2 diabetes mellitus with hypoglycemia without coma; F41.1 Generalized anxiety disorder; E66.3 Overweight; E78.00 Pure hypercholesterolemia, unspecified; I10 Essential (primary) hypertension; E78.5 Hyperlipidemia, unspecified; M54.2 Cervicalgia; W18.30XA Fall on same level, unspecified, initial encounter; T38.3X5A Adverse effect of insulin and oral hypoglycemic [antidiabetic] drugs, initial encounter; Z68.29 Body mass index [BMI] 29.0-29.9, adult; Z71.3 Dietary counseling and surveillance; Z79.82 Long term (current) use of aspirin; Z79.84 Long term (current) use of oral hypoglycemic drugs; Z79.899 Other long term (current) drug therapy; Z82.3 Family history of stroke; Z83.3 Family history of diabetes mellitus; Y93.89 Activity, other specified; Y92.89 Other specified places as the place of occurrence of the external cause; Y99.8 Other external cause status
CPT/HCPCS: 36415; 71045; 72040; 80048; 80053; 80305; 81001; 82948; 83036; 83690; 83735; 83880; 84100; 84443; 84484; 85025; 85610; 85730; 87081; 87086; 93005; 96374; 96376; 97161-GP; 99291; 99292; G0480; G0482; J0696; J1815; J2354; J7030; J7042; J7060; Q0092